=== PATIENT | female | born 1985 | race American Indian/Alaskan Native ===

== ENCOUNTER 2022-02-16 15:38 | Emergency (ER) | payer SELFPAY ==
[2022-02-16 17:54] VITALS: BP 148/84
== END 2022-02-20 10:53 | disposition left against medical advice (07) ==
LOC: EDBD → ED 15:38
DX: Z00.00 Encounter for general adult medical examination without abnormal findings (principal); Z53.21 Procedure and treatment not carried out due to patient leaving prior to being seen by health care provider